=== PATIENT | male | born 1960 | race Caucasian/White ===

== ENCOUNTER 2024-10-25 11:16 | Outpatient (AMB) | payer OTHER, SELFPAY ==
--- NOTE | 2024-10-25 11:26 | A.SPINEOV_ITS ---
Intake Visit Reasons: severe stenosis L1-2 Intake Note: Mr. Tate (a previous 2015 pt from [facility]) is here today c/o low back pain. MRI done @ [place]. Laboratory [facility] Required: No Allergies Vancomycin Adverse Reaction (Uncoded 10/25/24 11:30) Unknown Assessment & Plan Assessment & Plan (1) Lumbar spinal stenosis due to adjacent segment disease after fusion procedure: Code(s): M48.061 - Spinal stenosis, lumbar region without neurogenic claudication; M51.369 - Other intervertebral disc degeneration, lumbar region without mention of lumbar back pain or lower extremity pain; Z98.1 - Arthrodesis status Category: Medical Plan: Dear colleague Thank you for referring Deon Tate to the office today with a chief complaint of back pain and bilateral leg numbness. HPI: This 63-year-old male underwent an minimally invasive L2-3 lumbar fusion by me at [facility] in 2014. He had an excellent recovery. He had 2 knee replacements done and after the last knee replacement in May started to notice numbness in the proximal part of his legs with walking and standing. The left side is more affected than the right side. There may also be some weakness in the proximal part of his legs. When he sits down the symptoms get better however after prolonged sitting he developed back pain and then it is difficult to get going from the back pain. He tried physical therapy with no effect. He is currently taking Tylenol, which is not really helping. He was deemed not be a candidate for cortisone injections. hots PMH: Hypertension, hypercholesterolemia, status post L2-3 lumbar fusion, 2 knee replacements Medications: Gabapentin, Tylenol Allergies: Social history: , nonsmoker Physical Exam: Pleasant male. Height 6 ft weight 240 lb. He walks with a Trendelenburg at the right side. Individual motor testing is intact. Sensory exam is intact. No pathological reflexes Radiological Studies: MRI done at [place] on 10/15/2024 shows status post L2-3 lumbar fusion but more importantly there is adjacent degenerative disc disease with [id number] L1-L2 spinal stenosis. There is mild L3-4 spinal stenosis and severe degenerative disc disease L4-5. A dynamic x-ray with flexion-extension x-rays show a mild, stable spondylolisthesis above the previous fusion. Impression/Plan: This patient is suffering from neurogenic claudication symptoms with numbness and mild weakness with walking and standing. The source of his symptoms are most likely the severe L1-2 stenosis. We discussed surgical options. I would like to offer him a L1-L2 decompression through a right-sided approach to address the symptoms. He is aware that if more instability occurs that he requires a fusion of L1-L2. He will call my office for surgical date. He had annual physical done in May. Thank you for allowing me to participate in your patients care. total time spent was 50 minutes in counseling ,coordination of plan, personal review of imaging, surgical decision making and subsequent plan Juan Miguel Montgomery MD, PhD [facility] Trained Neurosurgeon Director, [facility] Orders: Orders XR lumbar spine 4V min Today M48.061 - Spinal stenosis, lumbar region without neurogenic claudication, M51.369 - Other intervertebral disc degeneration, lumbar region without mention of lumbar back pain or lower extremity pain, Z98.1 - Arthrodesis status Coding Level of Care Code New Pt Level 4 (25485) Diagnoses Lumbar spinal stenosis due to adjacent segment disease after fusion procedure M48.061; M51.369; Z98.1
--- OUTSIDE RECORDS SUMMARY | 2024-10-25 12:14 | XMS_ITS | Referral Summary ---
Author Organization [facility] Address [address] [place] [address] Care Team Providers Care [employer] Name Role Phone Pravin Gandhi MD Primary Care Provider Encounters Date Type Department Care Team Description 10/19/2024 9:00 AM EDT Telehealth [facility] [address] [place] [phone] Tung Arambula PA Adjacent segment disease of lumbar spine with history of fusion procedure (Primary Dx); Lumbar stenosis without neurogenic claudication; History of lumbar fusion; Radiculopathy of lumbar region 10/18/2024 Telephone [facility] [address] [place] [address] Telephone Intake, Staff PAC Patient Request Call Back/Tyesha 09/26/2024 11:33 AM EDT - 09/26/2024 11:59 PM EDT Hospital Encounter [facility] [address] [place] [address] Radiculopathy of lumbar region; History of lumbar fusion Discharge Disposition: Home or Self Care () 09/26/2024 11:00 AM EDT Office Visit [facility] [address] [place] [address] Tung Arambula PA Radiculopathy of lumbar region (Primary Dx); History of lumbar fusion 09/18/2024 Orders Only [facility] [address] [phone] Pravin Gandhi MD Fusion of spine of lumbar region (Primary Dx) 09/18/2024 Telephone [facility] [address] [phone] Pravin Gandhi MD back px 08/11/2024 8:15 AM EDT Office Visit [facility] [address] [phone] Pravin Gandhi MD Chronic midline low back pain without sciatica (Primary Dx); Hypertension, unspecified type from Last 3 Months Allergies Active Allergy Reactions Criticality Noted Date Comments Vancomycin Hcl Unknown Medications multivitamin (THERAGRAN) tablet Take 1 tablet by mouth once a day. Active aspirin-acetami nophen-caffeine (Excedrin Migraine) 250-250-65 mg per tablet Take 2 tablets by mouth every 6 hours as needed for headache. Active cetirizine (ZyrTEC) 10 mg tablet Take 10 mg by mouth once a day. Active aspirin 81 mg EC tablet Take 1 tablet (81 mg total) by mouth 2 times a day. Take with food. For 4 weeks 12/29/2023 Active atorvastatin (LIPITOR) 20 mg tablet Take 1 tablet (20 mg total) by mouth once a day. 90 tablet 3 03/23/2024 Active sertraline (ZOLOFT) 25 mg tablet TAKE 1 TABLET(25 MG) BY MOUTH EVERY DAY 90 tablet 3 03/28/2024 Active gabapentin (NEURONTIN) 100 mg capsule Take 1 capsule (100 mg total) by mouth 3 times a day. 270 capsule 1 09/18/2024 Active Active Problems Problem Noted Date Diagnosed Date Arthritis of knee 12/29/2023 Osteoarthritis 07/15/2023 Knee pain 07/14/2023 Impaired mobility 07/14/2023 Anxiety 03/30/2023 Chronic migraine with aura w ithout status migrainosus, not intractable 03/30/2023 Elevated BP without diagnosis of hypertension RAJI (obstructive sleep apnea) 03/30/2023 Primary osteoarthritis of both knees 05/29/2015 Fusion of spine of lumbar region 03/14/2015 Spondylisthesis 12/25/2014 Injury Due To Legal Intervention By A Piercing I nsadament 03/17/2013 Open wound of hand 03/17/2013 Joint pain, knee 01/28/2010 Assessment & Plan (01/29/2022 11:23 AM EDT): Patient is a 61 y.o. male here for follow up of bilateral knee injections. Patient previously had a knee surgery about 1 year ago after which she had a 3-week course in September 2021. Since then her left knee pain is greatly improved. He says he feels great with about 95% improvement. -Continue at home exercises shown by physical therapy -Continue to ice and heat if needed, use Tylenol as needed -Follow-up if knee pain worsens for another injection possibly in April. Resolved Problems Problem Noted Date Diagnosed Date Resolved Date Perianal irritation 06/11/2015 04/05/20 24 Low back pain 03/15/2015 04/05/2024 Pre-operative exam 02/04/2015 3 Immunizations Immunization Administration Dates Next Due Diphtheria, Tetanus Toxoids and Acellular Pertussis Vaccine 12/19/2012 INFLUENZA, SPLIT VIRUS, TRIVALENT, PF 02/03/2016 ,03/21/2015 Influenza, Injectable, Madin Kopperl Canine Kidney, Preservative Free, Quadrivalent 02/09/2022 Influenza, Injectable, Quadrivalent Preservative Free 02/15/2024 Influenza, Trivalent, MDV, Injectable 03/28/2021 Influenza, Unspecified 02/20/2023,02/27/2022 Zoster Vaccine, Live 10/25/2018,08/23/2018 Social History Tobacco Use Types Packs/Day Years Used Date Smoking Tobacco: Never Passive Smoke Exposure: Past Smokeless Tobacco: Never Tobacco Cessation:Counseling Given: Not Answered Comments:: Alcohol Use Standard Drinks/Week Comments Yes 0 (1 standard drink = 0.6 oz pur e alcohol) occasional [facility] Utilities Answer Date Recorded In the past 12 months has [employer], gas, oil, or water company threatened to shut off services in your home? No 08/10/2024 Hunger Vital Sign Answer Date Recorded Within the past 12 months, y ou worried that your food would run out before you got the money to buy more. Never true 08/11/19 25 Within the past 12 months, t he food you bought just didn't last and you didn't have money to get more. Never true 08/10/2024 Transportation Answer Date Recorded In the past 12 months, has l ack of reliable transportation kept you from medical appointments, meetings, work or from getting things needed for daily living? No 08/10/2024 Housing Answer Date Recorded Housing Risk Low 2 08/10/2024 Housing Risk Medium Not on file 08/10/2024 Housing Risk High Not on file 08/10/2024 What is your living situation today? LSSTEADY 08/10/2024 Sex and Gender Information Value Date Recorded Sex Assigned at Male 10/23/2020 11:07 AM EDT Legal Sex Male 2:59 AM EDT Gender Identity Male 10/23/2020 11:07 AM EDT Sexual Orientation Straight 10/23/2020 11 :07 AM EDT Last Filed Vital Signs Vital Sign Reading Time Taken Comments Blood Pressure 140/88 08/11/2024 8:15 AM EDT Pulse 92 08/11/2024 8:15 AM EDT Temperature 36.3 ??C (97.3 ??F) 12/29/2023 7:44 PM ED T Respiratory Rate 18 12/29/2023 7:44 PM EDT Oxygen Saturation 98% 08/11/2024 8:15 AM EDT Inhaled Oxygen Concentration - - Weight 105.2 kg (232 lb) 08/11/2024 8:12 AM EDT Height 179.1 cm (5' 10.5 ) 08/11/2024 8:12 AM ED T Body Mass Index 32.82 08/11/2024 8:12 AM EDT Plan of Treatment Upcoming Encounters Date Type Department Care Team (Late st Contact Info) Description 12/05/2024 10:45 AM EDT Follow-Up [address] [phone] Pravin Gandhi MD [address] [place] [address] 06/04/2025 9:00 AM EST Office Visit [facility] [address] [place] [address] Pravin Gandhi MD [address] [place] [address] [address] [place] [address] Medical Devices Implanted Type Area Car Salter Device Identifier Shelf Expiration Date Model / Serial / Lot Cement Tobramycin Impreganated Simplex P - [id number] Implanted:Qty: 2 on 07/14/2023 by Clyde Win MD at [facility] Implant Left: Knee NANCI 07/21/2024 6197-9-001 / / [id number] Plug Stem Posterior Stabilized Tapered Tivanium Nexgen - [id number] Implanted:Qty: 1 on 07/14/2023 by Clyde Win MD at [facility] Implant Left: Knee Latrice 11/03/2032 5960-99 / / [id number] Component Patella Polyethylene 35mm Nexgen - [id number] Implanted:Qty: 1 on 07/14/2023 by Clyde Win MD at [facility] Implant Left: Knee Latrice 03/15/2028 00-5972-65 -35 / / [id number] Insert Tibial Cruciate Retaining Green Size Ch5-6 10mm Flex Nexgen - [id number] Implanted:Qty: 1 on 07/14/2023 by Clyde Win MD at [facility] Implant Left: Knee Latrice 08/26/2027 5952-040-1 0 / / [id number] Cement Tobramycin Impreganated Simplex P - [id number] Implanted:Qty: 2 on 12/29/2023 by Clyde Win MD at [facility] Implant Right: Knee NANCI 07/21/2024 6197-9-001 / / [id number] Baseplate Tibial Stemmed Tivanium/Pmma Precoat Size 5 Nexgen - [id number] Implanted:Qty: 1 on 12/29/2023 by Clyde Win MD at [facility] Implant Right: Knee Latrice 10/29/2032 / / [id number] Plug Stem Posterior Stabilized Tapered Tivanium Nexgen - [id number] Implanted:Qty: 1 on 12/29/2023 by Clyde Win MD at [facility] Implant Right: Knee Latrice 04/11/2033 5960-99 / / [id number] Component Patella Polyethylene 35mm Nexgen - [id number] Implanted:Qty: 1 on 12/29/2023 by Clyde Win MD at [facility] Implant Right: Knee Latrice 10/02/2028 00-5972-65 -35 / / [id number] Insert Tibial Cruciate Retaining Green Size Ch5-6 10mm Flex Nexgen - [id number] Implanted:Qty: 1 on 12/29/2023 by Clyde Win MD at [facility] Implant Right: Knee Latrice 09/13/2028 5952-040-1 0 / / [id number] Baseplate Tibial Stemmed Tivanium/Pmma Precoat Size 5 Nexgen - [id number] Implanted:Qty: 1 on 07/14/2023 by Clyde Win MD at [facility] Plate Left: Knee Latrice 02/03/2033 / / [id number] Nexgen Cr-Flex Femoral Component Size G Minus Left Implanted:Qty: 1 on 07/14/2023 by Clyde Win MD at [facility] Left: Knee Latrice 09/22/2032 / / [id number] Nexgen Cr Flex Femoral Component Size G Minus Implanted:Qty: 1 on 12/29/2023 by Clyde Win MD at [facility] Right: Knee Latrice 10/21/2025 / / [id number] Procedures * Due to [place] state law, this organization might not be sharing negative HIV tests. Procedure Name Priority Date/Time Associated Diagnosis Comments MRI LUMBAR SPINE WO CONTRAST Routine 10/15/2024 7:50 PM EDT Radiculopathy of lumbar region History of lumbar fusion XR LUMBAR SPINE 4+ VIEWS INCLUDING FLEXION/EXTENSION Routine 09/26/2024 11:40 AM EDT Radiculopathy of lumbar region History of lumbar fusion BASIC METABOLIC PANEL Routine 05/26/2024 10:26 AM EST Routine general medical examination at a health care facility COLONOSCOPY 04/06/2022 from Last 3 Months or Most Recently Relevant to Health Maintenance Results * Due to [place] state law, this organization might not be sharing negative HIV tests. * MRI lumbar spine without contrast (10/15/2024 7:50 PM EDT) Anatomical Region Laterality Modality Spine, L-spine Magnetic Resonan ce 10/15/2024 7:20 PM EDT Impressions 10/18/2024 3:48 PM EDT 1. ??Prior instrumented fusion at L2-L3. No hardware-related complications. 2. ??Intervertebral disc degeneration and facet arthropathy above and below the instrumented segment, resulting in severe spinal canal stenosis at L1-L2 and moderate spinal canal stenosis at L3-L4. 3. ??Degenerative changes at other levels are as described in detail above. If this radiology report contains a blank impression section, it is an incomplete radiology report. ??Please contact the interpreting radiologist or applicable radiology division as soon as possible to obtain the completed interpretation. ? Workstation ID: [id number] Narrative 10/18/2024 3:48 PM EDT INDICATION: ??Lumbar radiculopathy, no red flags, no prior management M54.16 - I10 - Radiculopathy, lumbar region M54.16 - I10 - Radiculopathy, lumbar region - new onset b/l lumar radiculopathy in the setting of Lumbar fusion 2014. TECHNIQUE: Multiplanar, multisequence MRI of the lumbar spine was performed ??without contrast using standard departmental protocol. COMPARISON: Lumbar spine radiographs: 09/26/2024, 02/19/2015. Lumbar spine MRI: 10/20/2014. FINDINGS: There is transitional lumbosacral anatomy, with pseudoarticulation on the left. For the purposes of this report, the transitional segment is designated as a partially-sacralized L5 vertebra. There are hypoplastic ribs at the T12 level. Prior posterior instrumented fusion with interbody graft is noted at the L2-L3 level. No hardware-related ossifications. No fluid collection the operative bed or epidural space. Multilevel intervertebral disc desiccation with disc space narrowing throughout the lumbar spine, with degenerative endplate remodeling at L3-L4 and L4-L5. No destructive osseous lesions. Vertebral body heights are preserved. Conus is normal in caliber and signal, terminating at the L1 level. ??No canal collection or mass is identified. ??Normal distribution of the cauda equina nerve roots in the thecal sac. Midline postsurgical scarring at the operative level. Mild osteoarthritis both sacroiliac joints. Level by level analysis of the lumbar spine demonstrates the following: T12-L1: Small disc bulge. Bilateral facet arthropathy. No spinal canal stenosis or neural foraminal narrowing. L1-L2: Minimal disc uncovering with circumferential disc bulge. Bilateral facet arthropathy. Severe spinal canal stenosis. Moderate bilateral neural foraminal narrowing. L2-L3: The surgical changes. No residual spinal canal stenosis or neural foraminal narrowing. L3-L4: Circumferential disc bulge with central annular fissure and dorsal osteophytic ridge. Bilateral facet arthropathy. Moderate spinal canal stenosis. Mild left and moderate right neural foraminal narrowing. L4-L5: Circumferential disc bulge and dorsal osteophytic ridge. Bilateral facet arthropathy. Mild spinal canal stenosis. Moderate bilateral neural foraminal narrowing. L5-S1: Tiny disc bulge. Bilateral facet arthropathy. No spinal canal or neural foraminal narrowing. Resulting Agency Comment [id number] Procedure Note Oz Mederos MD - 10/18/2024 INDICATION: Lumbar radiculopathy, no red flags, no prior [id number] - I10 - Radiculopathy, lumbar region M54.16 - I10 - Radiculopathy,lumbar region - new onset b/l lumar radiculopathy in the setting of Lumbarfusion 2014. TECHNIQUE: Multiplanar, multisequence MRI of the lumbar spine wasperformed without contrast using standard departmental protocol. COMPARISON: Lumbar spine radiographs: 09/26/2024, 02/19/2015. Lumbar spine MRI: 10/20/2014. FINDINGS: There is transitional lumbosacral anatomy, with pseudoarticulation on theleft. For the purposes of this report, the transitional segment isdesignated as a partially-sacralized L5 vertebra. There are hypoplasticribs at the T12 level. Prior posterior instrumented fusion with interbody graft is noted at theL2-L3 level. No hardware-related ossifications. No fluid collection theoperative bed or epidural space. Multilevel intervertebral disc desiccation with disc space narrowingthroughout the lumbar spine, with degenerative endplate remodeling atL3-L4 and L4-L5. No destructive osseous lesions. Vertebral body heightsare preserved. Conus is normal in caliber and signal, terminating at the L1 level. Nocanal collection or mass is identified. Normal distribution of the caudaequina nerve roots in the thecal sac. Midline postsurgical scarring at theoperative level. Mild osteoarthritis both sacroiliac joints. Level by level analysis of the lumbar spine demonstrates the following: T12-L1: Small disc bulge. Bilateral facet arthropathy. No spinal canalstenosis or neural foraminal narrowing. L1-L2: Minimal disc uncovering with circumferential disc bulge. Bilateralfacet arthropathy. Severe spinal canal stenosis. Moderate bilateral neuralforaminal narrowing. L2-L3: The surgical changes. No residual spinal canal stenosis or neuralforaminal narrowing. L3-L4: Circumferential disc bulge with central annular fissure and dorsalosteophytic ridge. Bilateral facet arthropathy. Moderate spinal canalstenosis. Mild left and moderate right neural foraminal narrowing. L4-L5: Circumferential disc bulge and dorsal osteophytic ridge. Bilateralfacet arthropathy. Mild spinal canal stenosis. Moderate bilateral neuralforaminal narrowing. L5-S1: Tiny disc bulge. Bilateral facet arthropathy. No spinal canal orneural foraminal narrowing. IMPRESSION: 1. Prior instrumented fusion at L2-L3. No hardware-related complications. 2. Intervertebral disc degeneration and facet arthropathy above and belowthe instrumented segment, resulting in severe spinal canal stenosis atL1-L2 and moderate spinal canal stenosis at L3-L4. 3. Degenerative changes at other levels are as described in detailabove. If this radiology report contains a blank impression section, it is anincomplete radiology report. Please contact the interpreting radiologistor applicable radiology division as soon as possible to obtain thecompleted interpretation. Workstation ID: [id number] [facility] MRI PROCEDURES Final Res ult * XR Lumbar Spine 4+ Views Including Flexion/Extension (09/26/2024 11:40 AM EDT) Anatomical Region Laterality Modality Spine, L-spine Computed Radiogr aphy 09/26/2024 8:22 PM EDT Impressions 09/27/2024 5:46 PM EDT FINDINGS/IMPRESSION: There is transitional anatomy. ??For purposes of this report, there is partial sacralization of L5. ??Hypoplastic ribs at T12. Prior posterior instrumented spine fusion of L2-L3 with paired posterior rods and transpedicular screws with interbody devices. ??The interbody device is slightly anteriorly positioned similar to prior exam. ??No radiographic evidence of hardware complications. The normal lumbar lordosis is straightened. ??There is grade 1 anterolisthesis of L1-L2, increases with flexion relative to extension. No visible acute body compression fracture. ??Multilevel disc degeneration, moderate to severe at L4-L5. ??Multilevel facet arthropathy most pronounced within the lower lumbar spine. Degenerative changes of the sacroiliac joints. ??Partially evaluated moderate right hip osteoarthritis. ??The sacrum is obscured by overlying soft tissue structures. If this radiology report contains a blank impression section, it is an incomplete radiology report. ??Please contact the interpreting radiologist or applicable radiology division as soon as possible to obtain the completed interpretation. ? Workstation ID: [id number] Narrative 09/27/2024 5:46 PM EDT COMPARISON: 02/19/2015. Resulting Agency Comment [id number] Procedure Note Sam Peñaloza MD - 09/27/2024 COMPARISON: 02/19/2015. IMPRESSION: FINDINGS/IMPRESSION: There is transitional anatomy. For purposes of this report, there ispartial sacralization of L5. Hypoplastic ribs at T12. Prior posterior instrumented spine fusion of L2-L3 with paired posteriorrods and transpedicular screws with interbody devices. The interbodydevice is slightly anteriorly positioned similar to prior exam. Noradiographic evidence of hardware complications. The normal lumbar lordosis is straightened. There is grade 1anterolisthesis of L1-L2, increases with flexion relative to extension. No visible acute body compression fracture. Multilevel disc degeneration,moderate to severe at L4-L5. Multilevel facet arthropathy most pronouncedwithin the lower lumbar spine. Degenerative changes of the sacroiliac joints. Partially evaluatedmoderate right hip osteoarthritis. The sacrum is obscured by overlyingsoft tissue structures. If this radiology report contains a blank impression section, it is anincomplete radiology report. Please contact the interpreting radiologistor applicable radiology division as soon as possible to obtain thecompleted interpretation. Workstation ID: [id number] [facility] XR PROCEDURES Final Resu lt * Basic Metabolic Panel (05/26/2024 10:26 AM EST) Glucose 90 65 - 99 mg/dL 05/26/2024 7:33 PM [facility] Comment: ? Fasting reference interval BUN 15 7 - 25 mg/dL 05/26/2024 7:33 PM EST nfon Creatinine 0.89 0.70 - 1.35 mg/dL 05/26/2024 7:33 PM [facility] eGFR 97 > OR = 60 mL/min/1. 73m2 05/26/2024 7:33 PM [facility] Bun/Creatinine Ratio SEE NOTE: 6 22 (calc) 05/26/2024 7:33 PM [facility] Comment: ?? Not Reported: BUN and Creatinine are within ?? reference range. ? Sodium 141 135 - 146 mmol/L 05/26/2024 7:33 PM EST nfon Potassium 4.8 3.5 - 5.3 mmol/L 05/26/2024 7:33 PM EST nfon Chloride 104 98 - 110 mmol/L 05/26/2024 7:33 PM EST [employer] [facility] Carbon Dioxide 30 20 - 32 mmol/L 05/26/2024 7:33 PM EST nfon Calcium 9.5 8.6 - 10.3 mg/dL 05/26/2024 7:33 PM EST nfon Blood Structure of peripheral vein / Unknown 05/26/2024 10:26 AM EST 05/26/2024 5:35 PM EST Narrative [facility] - 05/26/2024 8:14 PM EST FASTING:YES Pravin Gandhi MD LAB BLOOD ORDERABLES Final R esult [facility] [address] [facility] [address] Floor, [place] [address], [place] [phone] [employer] [address] [place] [address] * COLONOSCOPY (04/06/2022) Narrative Procedure Note Joey Bower MD PhD - 04/06/2022 7:14 AM EST [facility] Gastroenterology Patient Name: Deon Tate Procedure Date: 04/06/2022 7:14 AM Date of : 1960 Admit Type: Outpatient Age: 61 Room: [place] [address] Gender: Male Note Status: Finalized Attending MD: Cristian Bower MD Procedure: Colonoscopy Indications: Family history of colon cancer in a first-degree relative before age60 years Providers: Cristian Bower MD (Doctor) Referring MD: Pravin Gandhi MD (Referring MD) Requesting Provider: Medicines: Propofol per Anesthesia Complications: No immediate complications. Estimated Blood Loss: Estimated blood loss: none. Procedure: After I obtained informed consent, the scope was passed under direct vision. Throughout theprocedure, the patient's blood pressure, pulse, and oxygen saturations were monitored continuously. The [id number] was introduced throughthe anus and advanced to the terminal ileum. The colonoscopy was performed without difficulty. The patient tolerated the procedure well. The qualityof the bowel preparation was good. Findings: Multiple small and large-mouthed diverticula were found in thesigmoid colon. The exam was otherwise normal throughout the examined colon. The terminal ileum appeared normal. Impression: - Diverticulosis in the sigmoid colon. - The examined portion of the ileum was normal. - No specimens collected. Recommendation: - Repeat colonoscopy in 5 years for surveillance. Cristian Bower MD 04/06/2022 7:52:20 AM This report has been signed electronically. Number of Addenda: 0 Note Initiated On: 04/06/2022 7:14 AM Joey Bower MD PhD PROVATION PROCEDURES Final Result from Last 3 Months or Most Recently Relevant to Health Maintenance Insurance [address] [place] [address] [facility] Advance Directives Documents on File Type Date Recorded Patient Slot Attendant Expl anation Advance Directive 02/20/2015 12:00 AM Adva nce Care Directives Health Care Proxy 10/22/2014 10:07 AM * Full Code (Latest Code Status on File) Date Activated Date Inactivated Comments 12/29/2023 12:01 PM 12/29/2023 10:36 PM * Full Code Date Activated Date Inactivated Comments 12/29/2023 5:52 AM 12/29/2023 12:01 PM * Full Code Date Activated Date Inactivated Comments 07/14/2023 3:11 PM 07/15/2023 4:08 PM * Full Code Date Activated Date Inactivated Comments 07/14/2023 9:36 AM 07/14/2023 3:11 PM Healthcare Agents on File Name Relationship Healthcare Agent Relationship Communication Mercy Silverio Significant Other Health Care Agent [email or web address] Care Teams [employer] Relationship Specialty Start Date End Date Pravin Gandhi MD [address] [place] [id number] PCP - General 12/10/16
== END 2024-10-25 12:16 | disposition home or self-care (01) ==
PROVIDERS: Visit Provider Neurological Surgery
DX: M48.061 Spinal stenosis, lumbar region without neurogenic claudication (principal); M51.369 Other intervertebral disc degeneration, lumbar region without mention of lumbar back pain or lower extremity pain; Z98.1 Arthrodesis status
CPT/HCPCS: 99204

== ENCOUNTER 2024-10-25 11:16 | Outpatient (REF) | payer OTHER, SELFPAY ==
--- NOTE | ~2024-10-25 | XR_ITS ---
EXAMINATION: XR LUMBOSACRAL SPINE CLINICAL INFORMATION: M48.061 - Spinal stenosis, lumbar region without neurogenic claudication COMPARISON: None available. TECHNIQUE: 4 views of the lumbar spine, inclusive of flexion and extension views, were obtained. FINDINGS: There is a mild right convex scoliosis of the thoracolumbar spine centered at T11. There is straightening of the normal lordosis. Transitional lumbosacral anatomy, with partial sacralization of L5, and pseudoarticulation of the left transverse process with the left sacral wing. There has been prior posterior fusion of L2-3 with transpedicular screws, posterior connecting rods, and disc prosthesis. The hardware appears well seated, intact, in anatomic alignment. There is no periscrew lucency or evidence of hardware complication. No bony fusion through the disc space at this time. There is a 2 mm degenerative anterolisthesis of L1 on L2, and a trace degenerative anterolisthesis of L3 on L4. No additional subluxation. Flexion and extension views demonstrate no pathologic motion at these levels or elsewhere. Severe disc degeneration present at L3-4 and L4-5 with sclerosis of the endplates and disc osteophytic spurring. Degenerative facet changes present spanning L3-S1. No soft tissue abnormalities identified. XR/XR lumbar spine 4V min IMPRESSION: 1. Transitional lumbosacral anatomy with partial sacralization of L5. 2. No acute bony abnormalities of the lumbar spine. 3. Dorsal fusion of L2-3 with discectomy, no loosening or complication evident. 4. No pathologic bony motion on flexion and extension views. 5. Severe disc degeneration present at L2-3 and L3-4. Electronically signed by: Sam Smart MD 10/26/2024 08:51 AM EDT
== END 2024-10-25 11:17 | disposition home or self-care (01) ==
LOC: HO.HOSX 11:16
PROVIDERS: Visit Provider Neurological Surgery
DX: Z98.1 Arthrodesis status (principal); M51.369 Other intervertebral disc degeneration, lumbar region without mention of lumbar back pain or lower extremity pain; M48.061 Spinal stenosis, lumbar region without neurogenic claudication
CPT/HCPCS: 72110

== ENCOUNTER → 2024-10-25 11:47 | Outpatient (BNV) | payer OTHER, SELFPAY | PROVIDERS: Visit Provider Radiology Diagnostic Radiology | DX: M43.26 Fusion of spine, lumbar region (principal); M51.369 Other intervertebral disc degeneration, lumbar region without mention of lumbar back pain or lower extremity pain | CPT/HCPCS: 72110 ==

== ENCOUNTER 2024-11-30 10:14 | Day surgery (SDC) | payer OTHER, SELFPAY ==
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
[2024-11-16 10:41] VITALS: BMI 32.5
[2024-11-30] VITALS (8 sets, daily range): BP systolic 130–170; BP diastolic 76–96; PULSE 57–100; RESP 16–18; TEMP 36.1–36.3; O2SAT 93–98; BMI 30.3
--- NOTE | ~2024-11-30 | FL_ITS ---
EXAMINATION: FL GUIDANCE ONLY HISTORY: L1-2 decompression COMPARISON: Correlation is made to plain films of the lumbar spine dated 10/25/2024. TECHNIQUE: Fluoroscopy time: Less than 0.1 minutes. Cumulative Dose: 5.66 mGy. DAP: 1.31 mGym2 Images: 5. FINDINGS: Fluoroscopic spot films of the lumbar spine demonstrate a probe directed toward the L1 vertebral body from a posterior approach. FL/FL guidance in OR IMPRESSION: Fluoroscopy during procedure. Please see procedure report for additional information. Electronically signed by: Gildardo Painter MD 12/01/2024 07:20 AM EDT
[2024-11-30] MEDS: Lactated Ringers 1,000 ML 100 ML IVCONT (11:59)
--- NOTE | 2024-11-30 12:26 | MHC.SHP ---
Pre-Procedural Eval Section A - 24 Hr Update-Section A only Date of Service: 11/30/24 Section B - Complete if H&P > 30 days Chief Complaint: Spinal stenosis, lumbar region without neurogenic Details of Present Illness: Right leg pain and back Allergies: Allergies Allergy/AdvReac Type Severity Reaction Status Date / Time vancomycin Allergy Severe ? Verified 11/16/24 10:41 rash-occurred in 1992 Review of Systems Sugical H&P ROS: Negative: Constitution, Cardiovascular, Respiratory, Neurological, Psychiatric, Hem-Onc, Allergic/Immunologic, Gastrointestinal, Genitourinary, Musculoskeletal, Integumentary, Endocrine and Eyes/Ears/Nose/Throat Exam Surgical H&P Exam: Normal: HEENT, Normal: Heart, Normal: Lungs, Normal: Extremities, Normal: Abdomen, Normal: Skin and Normal: Neurological Plan I have reviewed the history and physical and performed a pertinent physical examination on my patient. No changes have occurred unless specified. Right L1-L2 decompression Time Spent With Patient Time: Total time managing care of this patient today _5___ minutes.
--- NOTE | 2024-11-30 12:31 | HO.ANESPROP2 ---
Documented by User: Ava Thacker NP 11/17/24 14:31 HPI - Anesthesia Eval Consult details Narrative: 63yo M for Right L1-2 Decompression (right sided approach) ? DNR RAJI with mouth piece PMFSH Active Problems Active Problems: All Active Problems Lumbar spinal stenosis due to adjacent segment disease after fusion procedure (Acute) Past Medical History Medical History (Updated 11/16/24 @ 11:17 by Julia Edwards RN) Delayed emergence from general anesthesia Anxiety MRSA (methicillin resistant staph aureus) culture positive PONV (postoperative nausea and vomiting) Sleep apnea Elevated cholesterol HTN (hypertension) Surgical History Surgical History (Updated 11/30/24 @ 11:25 by Jessica Calabrese RN) Hx of hand surgery Hx of shoulder surgery Hx of arthroscopic knee surgery H/O colonoscopy Hx of total knee replacement History of lumbar fusion History of Problems with Anesthesia: Yes (PONV) Social History Social History Are you a primary healthcare facility administrator to a significant other at home: No Do you presently have visiting nurse or other home services: No Patient Tobacco Use Status: Never used Tobacco Use of substances other than those prescribed or required for medical reasons: No Have you been hit, kicked, punched, or otherwise hurt by someone within the past year? If so, by whom?: No Spiritual Healthcare Practices: no Jain Healthcare Practices: no Cultural Healthcare Practices: no Are you DNR?: No Advance Directives Information Provided: Yes (advised to bring copies DOS) Advance Directives on File: No Poor oral hygiene: No Meds Allergies Allergy/AdvReac Type Severity Reaction Status Date / Time vancomycin Allergy Severe ? Verified 11/16/24 10:41 rash-occurred in 1992 Home Medications ?Medication ?Instructions ?Recorded ?Confirmed ?Last Taken ?Type acetaminophen 500 mg tablet 1,000 mg PO BEDTIME 11/16/24 11/16/24 Unknown History aspirin 81 mg tablet,delayed 81 mg PO QAM 11/16/24 11/16/24 11/22/24 History release atorvastatin 20 mg tablet 20 mg PO QAM 11/16/24 11/16/24 Unknown History cetirizine 10 mg tablet 10 mg PO QAM 11/16/24 11/16/24 Unknown History gabapentin 100 mg capsule 200 mg PO BEDTIME 11/16/24 11/16/24 Unknown History losartan 50 mg tablet 50 mg PO QAM 11/16/24 11/16/24 Unknown History multivitamin 1 tab PO QAM 11/16/24 11/16/24 Unknown History sertraline 25 mg tablet 25 mg PO QAM 11/16/24 11/16/24 Unknown History Exam Height,Weight and Vital Signs: Height 6 ft Weight 108.862 kg Pertinent Lab Results Pertinent Lab Results: Outside labs on chart BMP from 05/2024 OK CBC 12/2023 OK Narrative Narrative: EKG 10/2024 NSR @ 79 ? LAE Assessment and Plan Assessment Anesthesia Assessment: Chart Reviewed Final Anesthetic Review History of Problems with Anesthesia: Yes (PONV) Documented by User: Tavia Morrow DO 11/30/24 12:33 HPI - Anesthesia Eval Consult details Narrative: 63yo M for Right L1-2 Decompression (right sided approach) RAJI with mouth piece PONV PMFSH Past Medical History Medical History (Updated 11/16/24 @ 11:17 by Julia Edwards RN) Delayed emergence from general anesthesia Anxiety MRSA (methicillin resistant staph aureus) culture positive PONV (postoperative nausea and vomiting) Sleep apnea Elevated cholesterol HTN (hypertension) Family History Family history of problems with anesthesia: No Surgical History Surgical History (Updated 11/30/24 @ 11:25 by Jessica Calabrese RN) Hx of hand surgery Hx of shoulder surgery Hx of arthroscopic knee surgery H/O colonoscopy Hx of total knee replacement History of lumbar fusion History of Problems with Anesthesia: Yes (PONV) Social History Social History Are you a primary healthcare facility administrator to a significant other at home: No Do you presently have visiting nurse or other home services: No Patient Tobacco Use Status: Never used Tobacco Use of substances other than those prescribed or required for medical reasons: No Have you been hit, kicked, punched, or otherwise hurt by someone within the past year? If so, by whom?: No Spiritual Healthcare Practices: no Jain Healthcare Practices: no Cultural Healthcare Practices: no Are you DNR?: No Advance Directives Information Provided: Yes (advised to bring copies DOS) Advance Directives on File: No Poor oral hygiene: No Meds Allergies Allergy/AdvReac Type Severity Reaction Status Date / Time vancomycin Allergy Severe ? Verified 11/16/24 10:41 rash-occurred in 1992 Home Medications ?Medication ?Instructions ?Recorded ?Confirmed ?Last Taken ?Type acetaminophen 500 mg tablet 1,000 mg PO BEDTIME 11/16/24 11/16/24 Unknown History aspirin 81 mg tablet,delayed 81 mg PO QAM 11/16/24 11/16/24 11/22/24 History release atorvastatin 20 mg tablet 20 mg PO QAM 11/16/24 11/16/24 Unknown History cetirizine 10 mg tablet 10 mg PO QAM 11/16/24 11/16/24 Unknown History gabapentin 100 mg capsule 200 mg PO BEDTIME 11/16/24 11/16/24 Unknown History losartan 50 mg tablet 50 mg PO QAM 11/16/24 11/16/24 Unknown History multivitamin 1 tab PO QAM 11/16/24 11/16/24 Unknown History sertraline 25 mg tablet 25 mg PO QAM 11/16/24 11/16/24 Unknown History Exam Exam Date and Time: 11/30/24 1230 Height,Weight and Vital Signs: Height 6 ft Weight 108.862 kg Vital Signs Temperature 97.4 F 11/30/24 11:42 Pulse Rate 57 11/30/24 11:42 Respiratory Rate 16 11/30/24 11:42 Blood Pressure 156/79 H 11/30/24 11:42 Pulse Oximetry 98 11/30/24 11:42 Oxygen Delivery Method Room Air 11/30/24 11:42 Temperature 97.4 F 11/30/24 11:42 Pulse Rate 57 11/30/24 11:42 Respiratory Rate 16 11/30/24 11:42 Blood Pressure 156/79 H 11/30/24 11:42 Pulse Oximetry 98 11/30/24 11:42 Oxygen Delivery Method Room Air 11/30/24 11:42 Airway Mallampati Class: II TM Dist: >3cm Neck ROM: Full Loose/Missing/Broken Teeth: No (patient denies any loose or broken teeth) Heart: S1S2 Lungs: CTAB Assessment and Plan Assessment Anesthesia Assessment: Anesthesia Plan Discussed and Chart Reviewed Final Anesthetic Review Family History of Problems with Anesthesia: No History of Problems with Anesthesia: Yes (PONV) NPO: Yes ASA Class: II Final Preanesthetic Review: No Changes in Pt Med Stat, Meds/Allgs Chart Reviewed, Consent Obtained/Reviewed and Anes Risks/Benef Reviewed Patient Risk: Low Procedure Risk: Intermediate Anesthetic Plan Anesthetic Plan: GA and Agree w/ Assess. and Plan Disposition: Standard PACU
--- NOTE | 2024-11-30 15:34 | W.PM.OPN ---
Operative Note Operative Note Date of Service: 11/30/24 Narrative: Preoperative Diagnosis: L1-L2 spinal stenosis/lateral recess stenosis/neural foraminal stenosis Operation: Bilateral L1-L2 Laminotomy, Partial facetectomy and foraminotomy through a right-sided approach with use of microscope Consent Informed Consent was obtained for this operation. I have explained the nature, purpose and benefits of the operation. I have discussed the risks and benefit of the operation including possible complications or adverse events with patient/family. Alternative(s) were discussed with the patient with their relative benefits and risks as well as the consequences of not accepting the operation were included in obtaining consent. Surgeon: GENOVEVA BRAVO MD, PHD Procedure Assisted By: Fran Grier PA-C Description of Procedure This patient had a previous L2-3 lumbar fusion done. He developed neurogenic claudication symptoms. MRI shows adjacent spinal stenosis at L1-L2. The options were to extend the fusion or to perform a laminotomy in attempt to avoid fusion of this level. We decided to offer the patient a decompression. The procedure complications were explained. The patient was consented. The patient was brought to the operating room and endotracheally intubated. The patient was turned in prone position on the Nicholas frame. Prep and drape was done followed by timeout. The Physician residential living assistant provided access. A mid lumbar incision was made followed by release of the paravertebral muscle on the right side to expose the L1-L2 lamina and facet joints. An intraoperative x-ray was obtained to confirm the correct level. The microscope was brought in. I took over the procedure. The high-speed drill was used to do a right L1-L2 laminotomy until flavum ligament was reached. The inferior articular process of L1 appeared to be loose and was removed. The flavum ligament was very thick and therefore it took a while before we reached the dura. Eventually the dura was identified and decompressed over its trajectory with A #2 Kerrison, including the exiting nerve roots. A long nerve hook could be easily passed along the medial side of the pedicles as a sign of adequate decompression. The microscope was removed. Hemostasis was done. The physician residential living assistant close the Incision in 2 layers. Steri-Strips were used to approximate incision. An OpSite with Tegaderm was used to cover the incision. All sponge needle counts were correct. Patient was extubated and transported in stable is to recovery room. Anesthesia: General Estimated Blood Loss (ml): 60 mL Complications: None Duration of Surgery: 90 Minutes Postoperative Plan: Discharge to home
--- NOTE | 2024-11-30 15:43 | P.DS_ITS ---
DS: Providers Provider Primary care physician: Unknown Physician Physical Exam Vital Signs: Vital Signs: Last Vital Signs Temp 97.4 F 11/30/24 11:42 Pulse 57 11/30/24 11:42 Resp 16 11/30/24 11:42 BP 156/79 H 11/30/24 11:42 Pulse Ox 98 11/30/24 11:42 O2 Del Method Room Air 11/30/24 11:42 BMI result Body Mass Index 30.3 Discharge Plan Discharge Patient Disposition: Home, Self-Care Referrals: Physician,Unknown J [Primary Care Provider, Medical] - 1 Week Discharge Medications: New oxycodone 5 mg tablet 5 mg PO Q6H PRN (Reason: pain) Qty: 20 0RF Rx Instructions: Partial Fill upon patient request. Continued multivitamin Tablet 1 tab PO QAM losartan 50 mg tablet 50 mg PO QAM atorvastatin 20 mg tablet 20 mg PO QAM cetirizine 10 mg Tablet 10 mg PO QAM acetaminophen 500 mg Tablet 1,000 mg PO BEDTIME sertraline 25 mg tablet 25 mg PO QAM gabapentin 100 mg capsule 200 mg PO BEDTIME Held aspirin 81 mg Tablet,Delayed Release (Dr/Ec) 81 mg PO QAM Hold Instructions: Resume on 12/04/24. Discharge Orders: Discharge Order (Routine); Ordered 11/30/24 Ordered By: Fran Grier Diet: Advance to usual diet Activity on Discharge: As tolerated Activity Restrictions/Additional Instructions: After your spinal surgery we ask you to observe the following restrictions/guidelines: Activity: It is normal to feel some discomfort as you increase your activity, but that will improve with time. We ask you avoid heavy lifting or acitivities that cause pain. As a general rule, 8lbs is a safe limit for lifting right after surgery. Walk as much as you feel comfortable but not to exhaustion. You will feel extra tired the first few days after surgery. Stay well hydrated. It is OK to walk up and down stairs You may return to driving when you are off narcotics (such as vicodin, oxycodone, dilaudid, etc), and you are back to normal functional capacity. If you have any concerns please check with office before driving. Return to work is specific to each patient and each surgery, so please speak with your doctor/PA at first follow up. Please bring paperwork such as FMLA at that time if you need it filled out. Medications: We recommend you take 1,000mg Tylenol every 8 hours for the first few weeks after surgery, if you do not have any liver issues and can tolerate this medication. Do not exceed 4,000mg daily. We will give you a short supply of narcotics after surgery (usually one weeks worth). If you need more please call the office but do not use more than prescribed. You will need to give our office 48 hours notice if you need narcotics refilled and we do not fill narcotics on weekends or evenings. If you are on a narcotic, it is a good idea to take a stool softener such as colace or senna to avoid constipation If you take blood thinner such as aspirin, Plavix, Coumadin, Effient, Eliquis etc for conditions such as Afib, DVT, Pulmonary embolus, coronary disease, stents etc please speak with your surgeon about specific details as to when you can resume these medications. You can resume NSAIDs on post op day 1 (eg: Motrin, Naproxen, etc). Follow up: Please call the office, , after surgery to arrange a 3 week follow up for wound check. Wound Care: You may remove your dressing on the first day after surgery. ?You may ?leave op en to air. Please do not remove the steri strips underneath. they will fall off on their own in one week. IT IS NORMAL FOR THE WOUND TO OOZE OR BE BLOODY FOR A FEW DAYS AFTER SURGERY. ?IF THIS HAPPENS JUST PLACE NEW DRESSING OVER IT TO AVOID STAINING CLOTHES. You may shower on post op day # 1 We ask that you do not let the water soak the wound. If it does get wet, just towel dry lightly. Please do not scrub your incision or place any type of chemical/ointment on the wound. No tub baths, pools or jacuzzis for one month. If you have any leaking or redness from your wound, or fevers, please call the office. Print Language: Irish
== END 2024-11-30 17:23 | disposition home or self-care (01) ==
PROVIDERS: Visit Provider Neurological Surgery
PROC: (CPT 63047; principal; 2024-11-30 14:30)
DX: M48.062 Spinal stenosis, lumbar region with neurogenic claudication (principal); M51.369 Other intervertebral disc degeneration, lumbar region without mention of lumbar back pain or lower extremity pain; R20.0 Anesthesia of skin; Z98.1 Arthrodesis status; R26.2 Difficulty in walking, not elsewhere classified; I10 Essential (primary) hypertension; E78.00 Pure hypercholesterolemia, unspecified; G47.33 Obstructive sleep apnea (adult) (pediatric); Z79.899 Other long term (current) drug therapy; Z96.653 Presence of artificial knee joint, bilateral; Z88.1 Allergy status to other antibiotic agents
CPT/HCPCS: 63047; J0131; J0690; J1100; J1885; J2003; J2250; J2405; J2704; J3010

== ENCOUNTER → 2024-11-30 10:14 | Outpatient (BNV) | payer OTHER, SELFPAY | PROVIDERS: Visit Provider Neurological Surgery | DX: M48.062 Spinal stenosis, lumbar region with neurogenic claudication (principal) | CPT/HCPCS: 63047 ==

== ENCOUNTER 2024-12-25 12:53 | Outpatient (AMB) | payer OTHER, SELFPAY ==
--- NOTE | 2024-12-25 13:11 | A.SPINEOV_ITS ---
Intake Visit Reasons: 1st post op Intake Note: Mr. Tate is here today for his 1st post-op visit. Glass Cut Off Tender Required: No Allergies vancomycin Allergy (Severe, Verified 11/16/24 10:41) ? 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 Montgomery. To recap he was initially evaluated in clinic for neurogenic claudication symptoms with numbness and mild weakness with walking and standing. Today, he reports that his symptoms at essentially completely resolved since his surgery. He is very satisfied overall with this procedure. He does still get flare ups of pain with increased activity or prolonged sitting, but this is very mild. No new neurological deficits. The patient ambulates well and rises from a seated position without difficulty. His posterior incision site is closed and well healing. Nearly fully healed. Deon is doing very well from his surgery, and travels over an hour and 15 minutes to come in to see us, therefore I do not believe making him come back for a 2nd postoperative visit his necessary. He may follow up with us in the future on an as-needed basis if he needs to. 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
--- OUTSIDE RECORDS SUMMARY | 2024-12-25 13:11 | XMS_ITS | Clinical Summary ---
Author Organization [facility] & [facility] lin Address [address] [place] [address] Care Team Providers Care Signs And Displays Sales Representative Name Role Phone Unavailable Primary Care Provider Unavailabl e Allergies No known active allergies Medications No known medications Social History Tobacco Use Types Packs/Day Years Used Date Smoking Tobacco: Never Assessed Sex and Gender Information Value Date Recorded Sex Assigned at Not on file Legal Sex Male 2:20 PM EST Gender Identity Not on file Sexual Orientation Not on file Last Filed Vital Signs Vital Sign Reading Time Taken Comments Blood Pressure - - Pulse 77 07/16/2020 11:24 AM EST Temperature 35.9 C (96.7 F) 07/16/2020 11:24 AM EST Respiratory Rate - - Oxygen Saturation 96% 07/16/2020 11:24 AM EST Inhaled Oxygen Concentration - - Weight - - Height - - Body Mass Index - - Plan of Treatment Health Maintenance Due Date Last Done Comments Colorectal Cancer: COLONOSCO PY Screening every 10 yrs (or Modifier) 1960 Depression: Screening Annual ly using PHQ-2/9 in Adults 18 yrs or above (or HM Modifier)([facility]) 12/25/1979 Hepatitis C Virus Infection in Adolescents and Adults: Screening (or Modifier) ([facility]) 12/25/1979 SDCO Screening Reminder: Shweta finley for all adults ([facility]) 12/25/1979 Tobacco Smoking Cessation: i n Adults excluding Women: Behavioral and Pharmacotherapy Interventions ([facility]) 12/25/1979 DTaP/Tdap/Td Vaccines ([facility]) (1 - Tdap) 1980 Colorectal Cancer Screening 45 -75 Yrs (or HM Modifier) 2006 Colorectal Cancer: FLEXIBLE SIGMOIDOSCOPY Screening every 5 yrs 2006 Colorectal Cancer: Fecal Imm unochemical Test (FIT) Annually [facility] 2006 Colorectal Cancer: High-sens itivity gFOBT Screening Annually [facility] 2006 Colorectal Cancer: Stool Col oguard Screening every 3 yrs 2006 Colorectal Cancer:CT Colonog tavon Screening every 5 yrs 2006 Pneumococcal Vaccination Scr eening: Patients 50+ yrs of age ([facility]) (1 of 1 - PCV) 12/25/2011 Zoster/Shingles Vaccine Seri es Screening: Adults aged 18+ yrs (or HM Modifiers)([facility]) (1 of 2) 12/25/2011 COVID-19 Vaccine Screening: Initial Series and Booster Status ([facility]) ( season) 2024 09/11/2020, 08/21/2020 Flu Vaccination: Yearly for ages 18mos through 64 years (or Modifier)([facility]) 12/22/2024 RSV Vaccines (1 - 1-dose 75+ series) 2036 [employer] Not on file
--- OUTSIDE RECORDS SUMMARY | 2024-12-25 13:11 | XMS_ITS | Patient Health Record ---
Author Organization [facility] Address [address] [place] [address] Care Team Providers Care Kiln Maintenance Name Role Phone Pravin Gandhi MD Primary Care Provider Bora Duggan MD,MPH, Ney Unavailable Reason For Referral No Information Medications Medication SIG (Take, Route, Frequency, Duration) Notes Start Date End Date Status ZANTAC 300 300 MG 1 TAB(S) ORALLY ONCE A DAY (AT SUPPER TIME); Duration: 30 DAY(S) *Please review for potential replacement for e-prescription and drug interaction check* Active ZyrTEC Allergy 10 MG 1 tab(s) orally once a day Active Social History Tobacco Use: Social History Observation Description Date Details (start date - stop date) Never Smoker NA - NA Smoking: Question Answer Notes Are you a : Never Smoker Plan Of Treatment No Information Insurance Providers Payer Name Payer Address Payer Phone Subscriber Number Group Number Insured Name Patient Relationship to Insured Coverage Start Date Coverage End Date [facility] [address] [facility] [place] [id number] Deon Tate Self - patient is the insured Medical (General) History Medical History History ICD Code seasonal allergies sleep apnea w/ mouth piece Surgical History Surgery Date(Month/Year) right knee x 2 left shoulder melanoma skin cyst left shoulder cystectomy lower lip
--- OUTSIDE RECORDS SUMMARY | 2024-12-25 13:11 | XMS_ITS | Referral Summary ---
Author Organization [facility] Address [address] [place] [address] Care Team Providers Care Master Naval Parachutist Name Role Phone Pravin Gandhi MD Primary Care Provider Encounters Date Type Department Care Team Description 11/08/2024 3:30 PM EDT Office Visit [facility] [address] [phone] Pravin Gandhi MD Elevated BP without diagnosis of hypertension (Primary Dx) 11/01/2024 myChart Message [facility] [address] [phone] Pravin Gandhi MD L1 and L2 10/19/2024 9:00 AM EDT Telehealth [facility] A [address] [place] [address] Tung Arambula PA Adjacent segment disease of lumbar spine with history of fusion procedure (Primary Dx); Lumbar stenosis without neurogenic claudication; History of lumbar fusion; Radiculopathy of lumbar region 10/18/[address] [facility] A [address] [place] [address] Telephone Intake, Staff PAC Patient Request Call Back/Tyesha 09/26/2024 11:33 AM EDT - 09/26/2024 11:59 PM EDT Hospital Encounter [facility] Xray [address] [place] [address] Radiculopathy of lumbar region; History of lumbar fusion Discharge Disposition: Home or Self Care (01) 09/26/2024 11:00 AM EDT Office Visit [facility] B [address] [place] [address] Tung Arambula PA Radiculopathy of lumbar region (Primary Dx); History of lumbar fusion from Last 3 Months Allergies Active Allergy [...] a day. 270 capsule 1 09/18/2024 Active losartan (COZAAR) 50 mg tablet Take 1 tablet (50 mg total) by mouth once a day. 90 tablet 3 11/08/2024 Active Active Problems Problem Noted Date Diagnosed [...] TRIVALENT, PF 02/03/2016 ,03/21/2015 Influenza, Injectable, [place] Canine Kidney, Preservative Free, Quadrivalent 02/09/2022 Influenza, [...] = 0.6 oz pur e alcohol) occasional [facility] Utilities Answer Date Recorded In the past 12 months has th e electric, gas, oil, or water [employer] threatened to shut off services in your [...] Description 06/04/2025 9:00 AM EST Office Visit [facility] [address] [phone] Pravin Gandhi MD [address] [place] [address] Medical Devices Implanted Type Area Acid Wash Operator Device Identifier Shelf Expiration Date Model / Serial / Lot Cement Tobramycin Impreganated Simplex P - [id number] Implanted:Qty: 2 on 07/14/2023 by Clyde Win MD at [facility] Implant Left: Knee NANCI 07/21/2024 6197-9-001 / / [id number] Plug Stem Posterior Stabilized Tapered Tivanium Nexgen - [id number] Implanted:Qty: 1 on 07/14/2023 by Clyde Win MD at [facility] Implant Left: Knee Latrice 11/03/2032 5960-99 / / [id number] Component Patella Polyethylene 35mm Nexgen - [id number] Implanted:Qty: 1 on 07/14/2023 by Clyde Win MD at [facility] Implant Left: Knee Latrice 03/15/2028 00-5972-65 -35 / / [id number] Insert Tibial Cruciate Retaining Green Size Ch5-6 10mm Flex Nexgen - [id number] Implanted:Qty: 1 on 07/14/2023 by Clyde Win MD at [facility] Implant Left: Knee Latrice 08/26/2027 5952-040-1 0 / / [id number] Cement Tobramycin Impreganated Simplex P - [id number] Implanted:Qty: 2 on 12/29/2023 by Clyde Win MD at [facility] Implant Right: Knee NANCI 07/21/2024 6197-9-001 / / [id number] Baseplate Tibial Stemmed Tivanium/Pmma Precoat Size 5 Nexgen - [id number] Implanted:Qty: 1 on 12/29/2023 by Clyde Win MD at [facility] Implant Right: Knee Latrice 10/29/2032 / / [id number] Plug Stem Posterior Stabilized Tapered Tivanium Nexgen - [id number] Implanted:Qty: 1 on 12/29/2023 by Clyde Win MD at [facility] Implant Right: Knee Latrice 04/11/2033 5960-99 / / [id number] Component Patella Polyethylene 35mm Nexgen - [id number] Implanted:Qty: 1 on 12/29/2023 by Clyde Win MD at [facility] Implant Right: Knee Latrice 10/02/2028 00-5972-65 -35 / / [id number] Insert Tibial Cruciate Retaining Green Size Ch5-6 10mm Flex Nexgen - [id number] Implanted:Qty: 1 on 12/29/2023 by Clyde Win MD at [facility] Implant Right: Knee Latrice 09/13/2028 5952-040-1 0 / / [id number] Baseplate Tibial Stemmed Tivanium/Pmma Precoat Size 5 Nexgen - [id number] Implanted:Qty: 1 on 07/14/2023 by Clyde Win MD at [facility] Plate Left: Knee Latrice 02/03/2033 / / [id number] Nexgen Cr-Flex Femoral Component Size G Minus Left Implanted:Qty: 1 on 07/14/2023 by Clyde Win MD at [facility] Left: Knee Latrice 09/22/2032 / / [id number] Nexgen Cr Flex Femoral Component Size G Minus Implanted:Qty: 1 on 12/29/2023 by Clyde Win MD at [facility] Right: Knee Latrice 10/21/2025 / / [id number] Procedures * Due to [place] state law, this organization might not be sharing negative HIV tests. Procedure Name Priority Date/Time Associated Diagnosis Comments ECG 12-LEAD Routine 11/08/2024 3:34 PM EDT Elevated BP without diagnosis of hypertension MRI LUMBAR SPINE WO CONTRAST Routine 10/15/2024 [...] to Health Maintenance Results * Due to [place] state law, this organization might not be sharing negative HIV tests. * ECG 12 lead (11/08/2024 3:34 PM EDT) Ventricular Rate EKG 79 BPM MUSE EKG Atrial Rate 79 BPM MUSE EKG NE Interval 144 ms MUSE EKG QRS Interval 98 ms MUSE EKG QT Interval 388 ms MUSE EKG QTC Interval 444 ms MUSE EKG P Dolliver 59 degrees MUSE EKG R Dolliver 57 degrees MUSE EKG T Wave Dolliver 40 degrees MUSE EKG 11/08/2024 3:34 PM EDT 11/14/2024 12:46 PM EDT Impressions MUSE EKG - 11/14/2024 12:47 PM EDT NORMAL SINUS RHYTHM POSSIBLE LEFT ATRIAL ENLARGEMENT BORDERLINE ECG WHEN COMPARED WITH ECG OF 16-DEC-2023 09:19, NO SIGNIFICANT CHANGE WAS FOUND Confirmed by Tushar Jackman ([id number]) on 11/14/2024 12:46:59 PM Narrative Procedure Note Tushar Jackman MD - 11/14/2024 IMPRESSION: NORMAL SINUS RHYTHM POSSIBLE LEFT ATRIAL ENLARGEMENT BORDERLINE ECG WHEN COMPARED WITH ECG OF 16-DEC-2023 09:19, NO SIGNIFICANT CHANGE WAS FOUND Confirmed by Tushar Jackman ([id number]) on 11/14/2024 12:46:59 PM us Pravin Gandhi MD ECG ORDERABLES Final Result MUSE EKG * MRI lumbar spine without contrast (10/15/2024 [...] to obtain the completed interpretation. Workstation ID: [id number] Narrative 10/18/2024 3:48 PM EDT INDICATION: Lumbar [...] or neural foraminal narrowing. Resulting Agency Comment [id number] Procedure Note Oz Mederos MD - 10/18/2024 INDICATION: Lumbar radiculopathy, no red flags, no prior rttlnctcdzW16.16 - I10 - Radiculopathy, lumbar region M54.16 [...] possible to obtain thecompleted interpretation. Workstation ID: [id number] [facility] MRI PROCEDURES Final Res [...] to obtain the completed interpretation. Workstation ID: [id number] Narrative 09/27/2024 5:46 PM EDT COMPARISON: 02/19/2015. Resulting Agency Comment [id number] Procedure Note Sam Peñaloza MD - 09/27/2024 [...] possible to obtain thecompleted interpretation. Workstation ID: [id number] [facility]ung [facility] IMG XR PROCEDURES Final Resu lt * Basic Metabolic Panel (05/26/2024 10:26 AM EST) Glucose 90 65 - 99 mg/dL 05/26/2024 7:33 PM EST [facility] Comment: Fasting reference interval BUN 15 7 - 25 mg/dL 05/26/2024 7:33 PM EST [facility] Creatinine 0.89 0.70 - 1.35 mg/dL 05/26/2024 7:33 PM EST [facility] eGFR 97 > OR = 60 mL/min/1. 73m2 05/26/2024 7:33 PM EST [facility] Bun/Creatinine Ratio SEE NOTE: (calc) 05/26/2024 7:33 PM EST [facility] Comment: Not Reported: BUN and Creatinine are within reference range. Sodium 141 135 - 146 mmol/L 05/26/2024 7:33 PM EST [facility] Potassium 4.8 3.5 - 5.3 mmol/L 05/26/2024 7:33 PM EST [facility] Chloride 104 98 - 110 mmol/L 05/26/2024 7:33 PM EST [facility] Carbon Dioxide 30 20 - 32 mmol/L 05/26/2024 7:33 PM EST [facility] Calcium 9.5 8.6 - 10.3 mg/dL 05/26/2024 7:33 PM [facility] Blood Structure of peripheral vein / Unknown 05/26/2024 10:26 AM EST 05/26/2024 5:35 PM EST Narrative [facility] - 05/26/2024 8:14 PM EST FASTING:YES Pravin Gandhi MD LAB BLOOD ORDERABLES Final R esult [facility] [address] [facility] [facility] [address], [place] [address], [place] [phone] [facility] [address] [address] * COLONOSCOPY (04/06/2022) Narrative Procedure Note Joey Bower MD PhD - 04/06/2022 7:14 AM EST [facility] Gastroenterology Patient Name: Deon Tate Procedure Date: 04/06/2022 7:14 AM Date of : 1960 Admit Type: Outpatient Age: 61 Room: [place] [id number] Gender: Male Note Status: Finalized Attending MD: [...] saturations were monitored continuously. The [id number] was introduced throughthe anus and advanced to [...] Most Recently Relevant to Health Maintenance Insurance [address] [place] [address] [facility] Advance Directives Documents on File Type Date Recorded Patient Sales Office Manager Expl anation Advance Directive 02/20/2015 12:00 AM [...] Name Relationship Healthcare Agent Relationship Communication [facility] Significant Other Health Care Agent [email or web address] Care Teams Master Naval Parachutist Relationship Specialty Start Date End Date Pravin Gandhi MD [address] [address] PCP - General 12/10/16
--- OUTSIDE RECORDS SUMMARY | 2024-12-25 13:11 | XMS_ITS | Clinical Summary ---
Author Organization [facility] Address [address] [place] [address] Care Team Providers Care Sales Force Developer Name Role Phone Unavailable Primary Care Provider Unavailabl e Allergies No known active allergies Medications * This document contains information received from the source organization and may not represent a complete record from that organization. No known medications Immunizations Immunization Administration Dates Next Due COVID-19, mRNA (Pfizer Pre F all 2022) Monovalent, 30 mcg/0.3 ml 09/11/2020,08/21/2020 Covid-19, mRNA (Pfizer Pre F all 2022) Bivalent, 30 mcg/0.3 ml carmina-sucrose (12+) dose 02/09/2022 Covid-19, mRNA (Pfizer Pre F all 2022) Monovalent, 30 mcg/0.3 ml carmina-sucrose (12+) 10/17/2021 Influenza,injectable,MDCK, Prsrv Fr,Quad 022 Influenza,seasonal,trivalent ,preservative (FLUZONE MDV) 03/28/2021 Zoster (Zostavax) 10/25/2018,08/23/2018 influenza,seasonal,trivalent ,PF (Fluzone, Fluarix, Flulaval) 02/03/2016,03/21/2015 Social History Tobacco Use Types Packs/Day Years Used Date Smoking Tobacco: Never Smokeless Tobacco: Never Tobacco Cessation:Counseling Given: Not Answered Alcohol Use Standard Drinks/Week Comments Not Asked 0 (1 standard drink = 0.6 oz pur e alcohol) Intimate Partner Violence Answer Date R ecorded Fear of Current or Ex-Partner Not on file Emotionally Abused Not on file 01/11/2023 Physically Abused Not on file 01/11/2023 Sexually Abused Not on file 01/11/2023 Feel Safe at Home Not on file 01/11/2023 Sex and Gender Information Value Date Recorded Sex Assigned at Not on file Legal Sex Male 10:23 PM EDT Gender Identity Not on file Sexual Orientation Not on file Last Filed Vital Signs Vital Sign Reading Time Taken Comments Blood Pressure 132/70 08/24/2022 3:01 PM EDT Pulse 88 08/24/2022 3:01 PM EDT Temperature - - Respiratory Rate - - Oxygen Saturation - - Inhaled Oxygen Concentration - - Weight 105 kg (232 lb) 08/24/2022 3:01 PM EDT Height 170.2 cm (5' 7 ) 08/24/2022 3:01 PM EDT Body Mass Index 36.34 08/24/2022 3:01 PM EDT Plan of Treatment Health Maintenance Due Date Last Done Comments Hepatitis C Screening 1960 DTaP/Tdap/Td (1 - Tdap) 12/25/1979 Colon Cancer Screening 2006 Pneumococcal 50+ years (1 of 1 - PCV) 12/25/2011 Zoster (Shingrix) (2 of 3) 12/20/2018 10/25/2018, COVID-19 Vaccine ( - season) 2024 02/09/2022, 10/17/2021, 09/11/2020, Additional history exists Influenza (#1) 2025 02/09/2022, 11/0 09/2020, 02/03/2016, Additional history exists RSV (1 - 1-dose 75+ series) 2036 Chest Imaging Discontinued 07/22/1993 Zoster (Zostavax) Discontinued 10/25/2018, 08/23/2018 HPV Vaccine (No Doses Required) Completed Hep A Aged Out No longer eligi ble based on patient's age to complete this topic Hep B Aged Out No longer eligi ble based on patient's age to complete this topic Hib Aged Out No longer eligi ble based on patient's age to complete this topic Meningococcal ACWY Aged Out No longer eligible based on patient's age to complete this topic Procedures * Due to [place] state law, this organization might not be sharing negative HIV tests. Procedure Name Priority Date/Time Associated Diagnosis Comments XRAY CHEST 2 VIEWS PA & LAT Routine 07/22/1993 5:31 PM EST Bronchitis, not Specified as Acute or Chronic from Last 3 Months or Most Recently Relevant to Health Maintenance Results * Due to [place] state law, this organization might not be sharing negative HIV tests. * XRAY CHEST 2 VIEWS PA & LAT (07/22/1993 5:31 PM EST) RADIOLOGY REPORT Procedure ID: [id number] CHEST,2 VWS,PA & LAT CHEST Heart size and configuration are within normal limits. Lung victoria negative. [facility] (CLIA# [id number]) Anatomical Region Laterality Modality Other 07/22/1993 5:31 PM EST Narrative 07/24/1993 1:20 PM EST Reason for Study/History: COUGH Test(s) processed by : [facility]- OTHER Final Re sult from Last 3 Months or Most Recently Relevant to Health Maintenance
--- OUTSIDE RECORDS SUMMARY | 2024-12-25 13:11 | XMS_ITS | Patient Health Record ---
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 Role Phone Pravin Gandhi MD Primary Care Provider Thao Pan Unavailable [phone] Allergies Allergen (clinical drug ingredient) Drug/Non Drug Allergy documented on EMR Reaction Allergy Type Onset Date Status Vancocin HCl Unknown Drug Allergy Acti ve Reason For Referral No Information Medications Medication SIG (Take, Route, Fr equency, Duration) Notes Start Date End Date Status Multi For Him 50+ - as directed Orally Active ZyrTEC Allergy 10 MG 1 tablet Orally Once a day Active CPAP DX: RAJI G47.33 as directed order auto CPAP 5-15 cm H2o, fit for mask SIG DATE:06/08/18 During sleep nightly for the treatment of sleep apnea; Duration: lifetime 06/08/2018 Active Problems Problem Type SNOMED Code ICD Code Onset Dates Problem Status W/U Status Risk Notes Problem RAJI (obstructive sleep apnea) (G47.33) Active confirmed Problem Obese class I (finding) (988457421685 107) Obesity (BMI 30.0-34.9) (E66.9) Active confirmed Encounters Encounter Location Date Provider Diagnosis [facility] [address] [place] [id number] 03/09/2024 Osuna Albakour [facility] - [address] [phone] 03/20/2024 Osuna Albakohalima Plan Of Treatment No Information Insurance Providers Payer Name Payer Address Payer Phone Subscriber Number Group Number Insured Name Patient Relationship to Insured Coverage Start Date Coverage End Date [facility] [address] [place] [phone] [id number] MUNA CRISTOBAL Self - patient is the insured Medical (General) History Medical History History ICD Code RAJI (obstructive sleep apnea) G47.33 Surgical History Surgery Date(Month/Year) Knee surgery Back surgery Shoulder surgery Tonsillectomy
--- OUTSIDE RECORDS SUMMARY | 2024-12-25 13:11 | XMS_ITS | Clinical Summary ---
Author Organization [facility] Address [address] [facility] [address] [place] [phone] Phone Care Team Providers Care Occ Therapist Name Role Phone Pravin Gandhi MD Primary Care Provider Allergies No known active allergies Active Problems Problem Noted Date Diagnosed Date Acquired spondylolisthesis 10/24/2014 Overview (04/30/2015): Acquired spondylolisthesis; Grade 1 L2-3 anterolisthesis; L3-4/L4-5 retrolisthesis Spinal stenosis of lumbar region 10/24/2014 Overview (04/30/2015): Spinal stenosis of lumbar region; Moderate to severe L2-3 Lumbar radiculopathy 10/17/2014 Overview (04/30/2015): Lumbar radiculopathy Lumbar spondylosis 10/17/2014 Overview (04/30/2015): Lumbar spondylosis Uncoded Degeneration of intervertebral disc 09/22 Overview (04/30/2015): Degeneration of intervertebral disc Family History Medical History Relation Comments Colon cancer Father Colon Cancer Relation Status Comments Father Social History Tobacco Use Types Packs/Day Years Used Date Smoking Tobacco: Never Sex and Gender Information Value Date Recorded Sex Assigned at Not on file Legal Sex Male 2:42 PM EDT Gender Identity Not on file Sexual Orientation Not on file Last Filed Vital Signs Vital Sign Reading Time Taken Comments Blood Pressure 142/80 10/24/2014 10:02 AM EDT Pulse 81 10/24/2014 10:02 AM EDT Temperature 36.7 C (98.1 F) 04/30/2010 3:15 PM EST Respiratory Rate 10 10/24/2014 10:02 AM EDT Oxygen Saturation - - Inhaled Oxygen Concentration - - Weight 95.3 kg (210 lb) 10/17/2014 9:38 AM EDT Height 182.9 cm (6') 10/17/2014 9:38 AM EDT Body Mass Index 28.48 10/17/2014 9:38 AM EDT Plan of Treatment Not on file Medical Devices Not on file Care Teams Occ Therapist Relationship Specialty Start Date End Date Pravin Gandhi MD [address] [address] PCP - General 06/04/17 Additional Source Comments The information contained in this document represents components of the legal health record. It is not the complete legal health record.[facility]
== END 2024-12-25 13:28 | disposition home or self-care (01) ==
LOC: HO.HNS 12:53
PROVIDERS: Visit Provider Physician Assistant
DX: M48.061 Spinal stenosis, lumbar region without neurogenic claudication (principal); M51.369 Other intervertebral disc degeneration, lumbar region without mention of lumbar back pain or lower extremity pain; Z98.1 Arthrodesis status
CPT/HCPCS: 99024